=== PATIENT | male | born 1970 | race Caucasian/White ===

== ENCOUNTER 2016-07-29 09:52 | Day surgery (SDC) | payer OTHER ==
[~2016-07-29] VITALS: Ht 175.3 cm; Wt 68.0 kg
[~2016-07-29 09:52] MED LIST: CEFAZOLIN 1GM IVPB FOR OMNI 50 ML IV ONE; EPINEPHRINE 30 MG/30 ML VIAL. ONE
[2016-07-29] MEDS ORDERED: PROPOFOL 20 ML IV ONE (10:11)
[2016-07-29] MEDS ORDERED: DEXAMETHASONE SOD PHOS 20 MG/5 ML VIAL. ONE (10:11)
[2016-07-29] MEDS ORDERED: FAMOTIDINE 20 MG/2 ML VIAL ONE (10:11)
[2016-07-29] MEDS ORDERED: LIDOCAINE 2% 100 MG/5 ML DISP.SYRIN. ONE (10:11)
[2016-07-29] MEDS ORDERED: ONDANSETRON PF 4 MG/2 ML VIAL. ONE (10:11)
[2016-07-29] MEDS ORDERED: MIDAZOLAM HCL/PF 2 MG/2 ML VIAL. ONE (10:44)
[2016-07-29] MEDS ORDERED: ROCURONIUM 50 MG/5 ML VIAL. ONE (10:57)
[2016-07-29] MEDS ORDERED: KETOROLAC 60 MG/2 ML SYRINGE FOR OR. ONE (12:03)
[2016-07-29] MEDS ORDERED: SEVOFLURANE > 120 MINUTES. IH ONE (13:21)
[2016-07-29] MEDS ORDERED: NEOSTIGMINE METHYLSULFATE 5 MG/5 ML SYRINGE. ONE (13:22)
[2016-07-29] MEDS ORDERED: GLYCOPYRROLATE 1 MG/5 ML VIAL. ONE (13:22)
--- NOTE | 2016-07-29 14:24 | DISCH ---
DISCHARGE INSTRUCTIONS Condition on Discharge Condition on Discharge: Stable Activity After Discharge Activity Instructions for Disc: Other, see below Other activity instructions: swing arm at side and fine motor use of hand OK Diet after Discharge Diet after Discharge: Regular Wound Incision Care Wound/Incision Care: Ice to area for comfort, Change dressing Other wound/incision instructi: remove dressing 2 days may then shower Community/Resources/Services Services at Discharge: PT EVALUATE & TREAT Contacting the DR. after DC Call your doctor for: Concerns you may have Follow-Up Follow up with: Selwyn 10 days SHILPA HUNTER MD Jul 29, 2016 14:24
[2016-07-29] MEDS ORDERED: OXYC-244 PO (14:26)
[2016-07-29] MEDS ORDERED: FENTANYL PF 100 MCG/2 ML VIAL. ONE (15:13)
[2016-07-29] MEDS ORDERED: IV RINGERS,LACTATED 1000ML 1,000 ML IV SCH (15:16)
[2016-07-29] MEDS ORDERED: MORPHINE SULFATE 2 MG/ML DISP.SYRIN. IV PRN (15:30)
[2016-07-29] MEDS ORDERED: FENTANYL PF 100 MCG/2 ML VIAL. IV PRN ×2 (15:30)
[2016-07-29] MEDS ORDERED: OXYCODONE/APAP 7.5/325 TABLET. PO ONE (15:30)
[2016-07-29] MEDS ORDERED: MORPHINE SULFATE 4 MG/ML DISP.SYRIN. IV PRN (15:30)
[2016-07-29] MEDS ORDERED: ONDANSETRON PF 4 MG/2 ML VIAL. IV PRN (15:30)
[2016-07-29] MEDS ORDERED: MIDAZOLAM HCL/PF 2 MG/2 ML VIAL. IV ONE (15:30)
[2016-07-29 15:35] VITALS: BP 112/70
--- NOTE | 2016-07-30 06:36 | PDOC ---
BRIEF OPERATIVE NOTE Date: Jul 29, 2016 Pre-Op Diagnosis rotator cuff tear, ac djd Post-Op Diagnosis same Procedure Performed right shoulder arthroscopic rotator cuff repair, decompression, distal clavicle excision Surgeon Selwyn Anesthesia Type: General, Regional Blood Loss 25cc Findings above Complications none SHILPA HUNTER MD Jul 30, 2016 06:36
--- NOTE | 2016-07-30 09:06 | OP ---
DATE OF SURGERY: 07/29/2016 PREOPERATIVE DIAGNOSIS: Right shoulder rotator cuff tear and acromioclavicular and degenerative joint disease. POSTOPERATIVE DIAGNOSIS: Right shoulder rotator cuff tear and acromioclavicular and degenerative joint disease. PROCEDURE: Right shoulder arthroscopy, arthroscopic rotator cuff repair, subacromial decompression, distal clavicle excision. SURGEON: Salo Samano M.D. ANESTHESIA: General endotracheal plus scalene block. ESTIMATED BLOOD LOSS: Minimal. COMPLICATIONS: None. OPERATIVE INDICATIONS: The patient has pain and weakness in his dominant right shoulder. MRI shows a full thickness rotator cuff tear. I had gone over with him the risks, benefits, postoperative course of typical operative treatment and nonoperative treatment options that would be basically compensation for nonhealing. We had talked about the possibility of nerve or blood vessel damage, infection, continued pain, medical or other anesthetic complications among others and long rehabilitation process expected. All his questions were answered. Consent was obtained and he agrees to proceed with operative evaluation and treatment. DESCRIPTION OF PROCEDURE: The patient was identified, procedure verified, patient placed in the supine position on the operating table. After adequate amounts of general endotracheal anesthesia were administered, he was placed in decubitus position, right side up. All bony prominences were well padded and the shoulder was examined under anesthesia and found to have full range of motion, no instability and was prepped and draped in standard sterile fashion, placed in the arthroscopic arm velasco with a total of 10 pounds of traction. After timeout was performed, the patient and procedure identified and verified, a standard posterior portal was established and anterior portal established using spinal needle localization and the shoulder joint was systematically examined. Biceps anchor and the biceps tendon itself were found to be intact. He did have a large appearance of U-shaped tear present from the joint side, this was capsule ligamentous structures as well as the bare area of the humerus were noted to be intact as was the glenohumeral cartilage. The subacromial space was then entered and a significant bursal tissue had to be cleared away to visualize the area, the rotator cuff was mobilized and actually found to have a more irregular but mainly L-shaped appearance, a nxtk-gr-sjrj repair of the tear was affected by placing several sutures with a bird beak suture passer and the L-shaped of the configuration was treated likewise the dyat-ht-ezwt nature was brought together with several more sutures. A total of 4 were placed zhnj-qz-gjuy and gave excellent really essentially anatomic apposition of the tear when they were by sliding, locking knot backed up by alternating post-half hitches. Next, the left final repair laterally after preparation of the rotator cuff footprint with arthroscopic bur was brought down by a Hurtado [employer]hew footprint suture anchor which gave anatomic positioning and of watertight repair and all degrees of internal and external rotation. Anterior acromial spur was then removed with the arthroscopic bur using cutting block technique and a distal clavicle excision was performed to 1 cm of the distal clavicle as in the area was narrowed and arthritic and symptomatic, any bony fragments were removed with the arthroscopic shaver. The repair was again examined under all degrees of internal and external rotation. The joint was drained of arthroscopic fluid. Portals closed with nylon suture. Sterile dressings were applied. The patient was placed in an immobilizer, extubated and transferred to postop holding in stable condition having tolerated the procedure well. SALO SAMANO MD DR: ELISSA/markus JOB#: [id number] / [id number]
== END 2016-07-29 16:30 | disposition home or self-care (01) ==
LOC: SURG 09:52
PROVIDERS: ATTEND Orthopaedic Surgery
DX: M75.101 Unspecified rotator cuff tear or rupture of right shoulder, not specified as traumatic (principal); M25.811 Other specified joint disorders, right shoulder; Z72.89 Other problems related to lifestyle
CPT/HCPCS: 29824; 29826; 29827; J0171; J0690; J1100; J1885; J2250; J2405; J2704; J2710; J3010; J3490; S0028; C1713; J7120

== ENCOUNTER 2016-09-10 00:49 | Inpatient (IN) | payer SELFPAY ==
[~2016-09-10] VITALS: Ht 175.3 cm; Wt 66.2 kg
[2016-09-10] VITALS (25 sets, daily range): BP systolic 118–152; BP diastolic 73–95
[~2016-09-10 00:49] MED LIST changes: -CEFAZOLIN 1GM IVPB FOR OMNI 50 ML IV ONE; -EPINEPHRINE 30 MG/30 ML VIAL. ONE; +OXYC-244 PO
[2016-09-10] MEDS ORDERED: MORPHINE SULFATE 2 MG/ML DISP.SYRIN. IV PRN (03:15)
[2016-09-10] MEDS ORDERED: HEPARIN for IV BOLUS 10,000 UNIT/10 ML VIAL. IV PRN ×2 (03:15→07:30)
[2016-09-10] MEDS ORDERED: PNEUMOCOCCAL VAX SCREEN BY RX. MC ONE (03:45)
[2016-09-10] MEDS: IV NORMAL SALINE 1000ML BAG 1,000 ML IV SCH ×2 (04:20→16:57)
[2016-09-10] MEDS ORDERED: NAPR550T3 PO (05:03)
[2016-09-10] MEDS ORDERED: TRAM50TA PO (05:03)
[2016-09-10] MEDS ORDERED: CYCL5TAB PO (05:03)
[2016-09-10 06:09] LABS: HEMATOCRIT 36.6 % (39.0-53.0); HEMOGLOBIN 12.7 g/dL (13.0-17.5); RED BLOOD COUNT 4.08 x10^6/uL (4.30-5.70); RED CELL DISTRIBUTION WIDTH 14.2 % (11.5-14.5)
[2016-09-10 06:26] LABS: CALCIUM 8.8 mg/dL (8.5-10.1); CREATININE 0.9 mg/dL (0.7-1.3); GFR 91.7; POTASSIUM 5.4 mmol/L (3.5-5.1)
[2016-09-10] MEDS: HEPARIN for IV BOLUS 10,000 UNIT/10 ML VIAL. IV PRN (07:29)
[2016-09-10] MEDS: MORPHINE SULFATE 2 MG/ML DISP.SYRIN. IV PRN ×3 (08:13→14:00)
--- NOTE | 2016-09-10 08:52 | PDOC ---
Provider Note Provider Note dictated acute resp fail abnl ct pe hep gtt, echo, abx, bronchodilator, if cardiology not going to do pericardiocentesis, would recommend ct guided bx of ant med or rll mass whatever is easier to access. ERMIAS ALICIA MD September 10, 2016 08:52
[2016-09-10] MEDS ORDERED: PNEUMOC CONJ VACC 23-VALENT 0.5 ML VIAL. VAX IM ONE (09:00)
[2016-09-10] MEDS: PANTOPRAZOLE 40 MG TABLET.DR. PO SCH (09:08)
--- NOTE | 2016-09-10 10:05 | RAD ---
Examination: Ultrasound bilateral lower extremity venous duplex History: History of pulmonary embolism Comparison: None available Technique: Grayscale, color Doppler 2-D, spectral waveform analysis of the bilateral lower extremity venous system were performed. Findings: There is a echogenicity identified in the distal left impression femoral vein extending into the popliteal vein, posterior tibialis vein likely occlusive thrombus. The right lower extremity venous system is patent. Impression : Occlusive deep venous thrombosis identified in the left distal superficial femoral vein extending into the popliteal vein and the posterior tibialis vein . Report given to information technology account manager to the patient's nurse.
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
--- NOTE | 2016-09-10 10:22 | CONS ---
DATE OF CONSULTATION: 09/10/2016 REASON FOR CONSULTATION: Pericardial effusion. HISTORY OF PRESENT ILLNESS: The patient is a 46-year-old gentleman who presented to the [facility] in the setting of progressive cough. He reported that approximately 6 weeks ago, he underwent a right shoulder surgery and since then has had progressive cough to a point where he had dyspnea as well. He reported hemoptysis in addition to his cough. In this setting, upon arrival to the [facility], he underwent a CAT scan of the chest, which unfortunately revealed possible anterior and right lower lobe masses suggestive of possible neoplasm and he was transferred to [facility] ICU for further evaluation and treatment. Cardiology was asked to comment on his moderate size pericardial effusion noted on CT scan of the chest. In speaking with the patient, he has had dyspnea to the point where he is unable to ambulate. He denies any chest pain, but does have orthopnea. Denies any syncope, but does have left greater than right lower extremity edema. In addition to his pericardial effusion, he also has moderate bilateral pleural effusions and possible subsegmental PEs for which he has been started on heparin drip. PAST MEDICAL HISTORY: No significant past medical history. FAMILY HISTORY: No significant family history. SOCIAL HISTORY: The patient reports smoking tobacco approximately half a pack a day for the last 25 years. He also uses occasional marijuana. He is unemployed and also unfortunately does not have any insurance. ALLERGIES: No known drug allergies. CV MEDS: None REVIEW OF SYSTEMS: Negative for 10 out of 14 systems reviewed, unless otherwise mentioned above in HPI. PHYSICAL EXAMINATION: VITAL SIGNS: Afebrile, heart rate 120, blood pressure 110/82, pulse ox 96% on 4 liters. GENERAL: He appears to be thin and older than stated age. HEAD AND NECK: Unremarkable and there is no lymphadenopathy. HEART: Tachycardic without any murmurs, rubs or gallops. LUNGS: Decreased breath sounds bilaterally. ABDOMEN: Soft, nontender. EXTREMITIES: Left greater than right edema from the hip to the ankle. NEUROLOGIC: No focal deficits. MUSCULOSKELETAL: No trauma. DIAGNOSTIC TESTING: CT scan reveals large pericardial effusion and moderate bilateral pleural effusions with a right lower lobe parenchymal density suggestive of neoplasm. Echocardiogram is pending. ASSESSMENT: 1. Pericardial effusion, likely secondary to malignancy. 2. Respiratory failure secondary to lung mass versus a pulmonary embolus. RECOMMENDATIONS: 1. We will obtain an echocardiogram and determine the need for a pericardiocentesis. He would likely benefit from a symptomatic perspective also from a diagnostic perspective to obtain a pericardiocentesis. We will follow along closely. Poor prognosis. Thank you for this consultation. LISSA HARPER MD DR: ALYX/markus JOB#: [id number] / [id number] ZENA
[2016-09-10] MEDS: IPRATRPIUM/ALBUTEROL 0.5/2.5MG 3 ML NEBU. NEB SCH ×3 (11:39→19:09)
[2016-09-10] MEDS: BUDESONIDE 0.5 MG/2 ML NEBU. NEB SCH ×2 (11:39→19:09)
--- NOTE | 2016-09-10 11:59 | CARD ---
APPROVED REPORT EXAM: Two-dimensional and M-mode echocardiogram with Doppler and color Doppler. Other Information Quality : Excellent INDICATION Pericardial Effusion 2D DIMENSIONS RVDd2.8 (2.9-3.5cm)Left Atrium(2D)2.4 (1.6-4.0cm) IVSd1.2 (0.7-1.1cm)Aortic Root(2D)2.9 (2.0-3.7cm) LVDd4.1 (3.9-5.9cm)LVOT Diameter1.9 (1.8-2.4cm) PWd0.8 (0.7-1.1cm)LVDs2.1 (2.5-4.0cm) FS (%) 30.0 %SV60.8 ml LVEF(%)60.0 (>50%) Aortic Valve AoV Peak Johan.120.1cm/sAoV VTI15.2cm AO Peak GR.5.8mmHgLVOT VTI 13.12cm AO Mean GR.3mmHgAVA (VTI)2.50cm2 Mitral Valve MV E Qfmewjil14.9cm/sMV DECEL CUOX051fj MV A Bzwywrga20.0cm/sE/A Ratio1.1 TDI Lateral E' P. V9.72cm/sMedial E' P. V5.21cm/s E/Lateral E'7.3E/Medial E'13.6 Tricuspid Valve TR P. Qjjobykv809gj/sRAP WMTAMBGA92qeCd TR Peak Gr.82pgUzRQDW16swXx Pulmonary Vein S1 Fshfpqdt44.7cm/sS2 Omxeuast85.60cm/s D2 Mpmzmwgb92.6cm/sPVa ikogvixq732hotv LEFT VENTRICLE The left ventricle is normal size. There is mild asymmetric septal left ventricular hypertrophy. The left ventricular systolic function is normal and the ejection fraction is within normal range. The Ej ection Fraction is 55-60%. There is normal LV segmental wall motion. Transmitral Doppler flow pattern is Grade I-abnormal relaxation pattern. RIGHT VENTRICLE The right ventricle is normal size. The right ventricular systolic function is normal. Suspect mild R V diastolic collapse suggestive of echocardiographic evidence of early tamponade. ATRIA The left atrium size is normal. The right atrium size is normal. The interatrial septum is intact wit h no evidence for an atrial septal defect or patent foramen ovale as noted on 2-D or Doppler imaging. AORTIC VALVE The aortic valve is normal in structure and function. Doppler and Color Flow revealed no significant aortic regurgitation. There is no significant aortic valvular stenosis. MITRAL VALVE The mitral valve is normal in structure and function. There is no evidence of mitral valve prolapse. There is no mitral valve stenosis. Doppler and Color-flow revealed trace mitral regurgitation. TRICUSPID VALVE The tricuspid valve is normal in structure and function. Doppler and Color Flow revealed trace tricus pid regurgitation. There is moderate pulmonary hypertension. The PA pressure was estimated at 45 mmHg . There is no tricuspid valve stenosis. PULMONIC VALVE Doppler and Color Flow revealed no pulmonic valvular regurgitation. There is no pulmonic valvular miriam nosis. GREAT VESSELS The aortic root is normal in size. The ascending aorta is normal in size. The IVC is dilated and obie apses <50% with inspiration. PERICARDIAL EFFUSION There is a moderate to large circumferential pericardial effusion, measuring approximately 1.9 cm in greatest dimension from the subcostal view. Ovearll, appears to be moderate in nature. Mild diastolic collapse of the RV noted. Critical Notification Critical Value: No <Conclusion> The left ventricular systolic function is normal and the ejection fraction is within normal range. Th e Ejection Fraction is 55-60%. There is normal LV segmental wall motion. Suspect mild RV diastolic collapse suggestive of echocardiographic evidence of early tamponade. The IVC is dilated and collapses <50% with inspiration. There is a moderate to large circumferential pericardial effusion, measuring approximately 1.9 cm in greatest dimension from the subcostal view. Ovearll, appears to be moderate in nature. Mild diastolic collapse of the RV noted.
--- NOTE | 2016-09-10 13:34 | HP ---
ADMIT DATE: 09/10/2016 CHIEF COMPLAINT: Shortness of breath. HISTORY OF PRESENT ILLNESS: The patient is a 46-year-old gentleman who presented to the Emergency Room with shortness of breath and worsening cough. He relates that cough has been going on at least since his rotator cuff repair about 6 weeks ago. However, his girlfriend relates that this actually had a predated surgery. Cough, however, has been getting worse, has some sputum production without any discoloration. He denies any chest pain. He does, however, have orthopnea, worsening cough at night as well. On further questioning, he reports subjective fevers and no rigors, has a weight loss of about 15-20 pounds over the past 6 weeks or so. He denies any nausea or vomiting. He does have positive anorexia. In the Emergency Room, chest x-ray showed cardiomegaly and further abnormalities prompting a CT scan of the chest; small pleural effusions were noted as well as pericardial effusion. A large right-sided posterior mass was noted as well. The patient was transferred to the [facility] for further management and care. A second issue that patient brought up, on examination, was swelling in the left lower extremity as well as in the left neck. Neck had been painful, but he had attributed symptoms due to the sling that he was wearing for his right rotator cuff repair. However, on further examination, DVT was found in left lower extremity and he was started on heparin drip. PAST MEDICAL HISTORY: 1. GERD. 2. Esophageal care requiring laser closure in his teenage years. FAMILY HISTORY: Positive for breast cancer in two of his aunts. Maternal grandfather also had some type of cancer, unknown specificity. SOCIAL HISTORY: Lives with his girlfriend, currently works at [employer] in [email or web address]. He smokes less than half a pack a day, starting at age 19. He has quit alcohol completely 2 months ago, but admits that occasionally this had been excessive and smokes pot occasionally. No other drugs. ALLERGIES: No known drug allergies. HOME MEDICATIONS: MAR reconciled with home meds. REVIEW OF SYSTEMS: Positive as per HPI. Rest of organ system review is negative. PHYSICAL EXAMINATION: VITAL SIGNS: From today show a blood pressure of 127/85, heart rate of 108, respiratory rate at 22. He is afebrile, satting 93 on 2 liters of nasal cannula. GENERAL: This is a malnourished appearing 46-year-old gentleman, alert and oriented, in no acute distress. HEENT: Shows no scleral icterus. NECK: Supple. Left supraclavicular area is swelled and indurated. No cords palpable. LUNGS: Clear to auscultation bilaterally. HEART: Slightly tachycardic. No murmur appreciated. ABDOMEN: Has positive bowel sounds, soft, nontender, no organomegaly. EXTREMITIES: Showed trace left lower extremity swelling from feet to knee. SKIN: Warm, soft and dry without any rash. LABORATORY DATA: CBC with a WBC of 10, hemoglobin 12.7, platelets of 266. Chemistries with a BUN and creatinine of 19 and 0.9. Electrolytes with a sodium of 133, potassium 5.4, and calcium at 8.8. IMAGING DATA: CT, x-rays, and ultrasound of the lower extremities as noted above. ASSESSMENT AND PLAN: The patient is a 46-year-old gentleman with a deep vein thrombosis as well as a lung mass. This is highly suspicious for malignancy. I suspect that in the setting of post-orthopedic surgery, his risk for blood clots is elevated to begin with, not improved with malignancy added to the equation. He currently is on heparin drip. We will keep him on this for the time being until all studies and interventions have been completed. 1. Pericardial effusion is osvg-fa-tnxfadwy, could very well be malignant as well. Cardiology is following. 2. Lung mass, most likely a primary lung malignancy. We will need biopsy for this. 3. Deep vein thrombosis, currently on heparin drip. At high risk secondary to malignancy as well as recent ortho surgery. 4. Anemia is mild. Suspect due to chronic inflammation with above. Obtain anemia profile to rule out any deficiencies. 5. Prognosis at this point appears poor. Discussed the likelihood of this being a malignancy with him. He is distraught. He is, however, accepting and agreeable to further workup. MAY CHAVARRIA MD DR: RIZWAN/markus JOB#: [id number] / [id number] ZENA
[2016-09-10] MEDS ORDERED: TEMAZEPAM 7.5 MG CAPSULE PO PRN (14:15)
[2016-09-10] MEDS: MORPHINE SULFATE 4 MG/ML DISP.SYRIN. IV PRN ×2 (19:50→22:08)
[2016-09-10] MEDS: HEPARIN 25,000UTS/500ML PREMIX 500 ML IV PRN (22:45)
--- NOTE | 2016-09-10 23:17 | RAD ---
PROCEDURE Chest CT without contrast HISTORY Left shoulder pain. Subcutaneous air. History of pulmonary embolism. TECHNIQUE Noncontrast helical CT scanning of the chest was performed. Without contrast, the sensitivity to detect organ pathology is decreased. One or more of the following individualized dose reduction techniques were utilized for this study: 1. Automated exposure control 2. Adjustment of the mA and/or kV according to patient size 3. Use of iterative reconstruction technique COMPARISON None available. FINDINGS Moderate size bilateral pleural effusions are seen. No pneumothorax is seen. No pneumomediastinum is evident. No subcutaneous air is evident. Proximal bronchial tree is patent. Bilateral peribronchial thickening is seen consistent with bronchitis. Perihilar ground-glass lung infiltrates are seen which could represent pulmonary edema. However, denser consolidation is seen within the medial aspect of the right lower lobe and this displaces the bronchus anteriorly. Therefore, this may represent a lung mass rather than a pneumonia. This measures 8.6 centimeters in greatest dimension. No bulky thoracic lymphadenopathy is seen. There is some residual thymic tissue within the anterior mediastinum. Heart size is normal. However a small to moderate pericardial effusion is present. No focal aneurysmal dilatation of the thoracic aorta is seen. Radiolucent lesions of the thoracic and lumbar spine are seen consistent with metastatic disease. No adrenal mass is seen. IMPRESSION 8.6 centimeter right lower lobe lung mass. Moderate size bilateral pleural effusions. Bilateral perihilar ground-glass lung infiltrates consistent with pulmonary edema. Small to moderate sized pericardial effusion. Bilateral peribronchial thickening. This could be secondary to interstitial pulmonary edema or bronchitis. Lymphangitis carcinomatosis has not been excluded. Osseous metastatic disease. Electronically signed by: Anthony De Guzman MD (September 10, 2016 23:15:40)
[2016-09-11] VITALS (23 sets, daily range): BP systolic 106–153; BP diastolic 71–95
[2016-09-11] MEDS: MORPHINE SULFATE 4 MG/ML DISP.SYRIN. IV PRN ×6 (00:10→21:41)
[2016-09-11] MEDS: IV NORMAL SALINE 1000ML BAG 1,000 ML IV SCH ×2 (06:09→20:17)
[2016-09-11] MEDS: BUDESONIDE 0.5 MG/2 ML NEBU. NEB SCH ×2 (06:27→20:53)
[2016-09-11] MEDS: IPRATRPIUM/ALBUTEROL 0.5/2.5MG 3 ML NEBU. NEB SCH ×4 (06:27→20:53)
--- NOTE | 2016-09-11 08:06 | PDOC ---
CARDIOLOGY PROGRESS NOTE SUBJECTIVE: No acute events overnight. Received anxiolytics for sleep. OBJECTIVE: Vital SIgns: Vital Signs Date Time Temp Pulse Resp B/P (MAP) Pulse Ox O2 Delivery O2 Flow Rate FiO2 09/11/16 06:27 100 Nasal Cannula 2.0 09/11/16 06:00 117 18 153/92 (112) 09/11/16 04:00 97.8 97.8 I & O Intake and Output 09/11/16 07:00 Intake Total 3302 ml Output Total 1350 ml Balance 1952 ml Intake Oral 1000 ml IV Total 2302 ml Output Urine Total 1350 ml Objective: Sedated a/o x 3. NAD CVS: tachycardia pulm decreased breath sounds bilaterally abd soft, NT/ND no edema CURRENT MEDICATIONS: Current Medications Medications (Trade) Dose Ordered Sig/Jackie Start Time Stop Time Status Last Admin Dose Admin Albuterol/ Ipratropium (Duoneb) 3 ml RTQID 09/10/16 09:30 09/11/16 06:27 3 ML Budesonide (Pulmicort) 0.5 mg RTBID 09/10/16 09:30 09/11/16 06:27 0.5 MG Ceftriaxone Sodium 1 gm/ Sodium Chloride 50 ml @ 100 mls/hr Q24H 09/10/16 10:00 09/10/16 09:09 100 MLS/HR Heparin Sodium (Porcine) (Heparin Sodium) 1,950 unit PRN Q6HRS PRN 09/10/16 07:30 UNV Heparin Sodium/ Dextrose 500 ml @ 0 mls/hr CONT PRN 09/10/16 03:15 09/10/16 22:45 24.3 MLS/HR Morphine Sulfate 4 mg PRN Q2HR PRN 09/10/16 08:15 09/11/16 06:09 4 MG Pantoprazole Sodium (Protonix) 40 mg DAILYAC 09/10/16 09:30 09/10/16 09:08 40 MG Pneumococcal Polyvalent Vaccine (Do NOT chart on this placeholder) 1 each 1X ONCE 09/10/16 03:45 09/10/16 03:46 UNV Pneumococcal Polyvalent Vaccine (Pneumovax 23) 0.5 ml ONCE ONCE 09/10/16 09:00 09/10/16 09:01 DC 09/10/16 09:11 0.5 ML Sodium Chloride 1,000 ml @ 75 mls/hr [id number] 09/10/16 03:15 09/11/16 06:09 75 MLS/HR Temazepam (Restoril) 7.5 mg PRN QHS PRN 09/10/16 14:15 09/11/16 00:10 7.5 MG DIAGNOSTIC TESTING: CXR pending ASSESSMENT: 1. Respiratory failure secondary to malignancy 2. Incidental pericardial effusion, without significant clinical evidence of tamponade. Problems: PLAN: 1. Will plan for pericardiocentesis tomorrow am. and will try to coordinate lung biopsy with IR to limit time off anticoagulation 2. May need IVC filter, will defer to pulmonary and IR. LISSA HARPER MD September 11, 2016 08:06
[2016-09-11 08:33] LABS: HEMATOCRIT 36.5 % (39.0-53.0); HEMOGLOBIN 12.1 g/dL (13.0-17.5); RED BLOOD COUNT 3.95 x10^6/uL (4.30-5.70); RED CELL DISTRIBUTION WIDTH 14.1 % (11.5-14.5); WHITE BLOOD COUNT 14.6 x10^3/uL (4.0-11.0)
[2016-09-11 08:47] LABS: CALCIUM 9.1 mg/dL (8.5-10.1); CREATININE 0.8 mg/dL (0.7-1.3); POTASSIUM 4.2 mmol/L (3.5-5.1)
[2016-09-11] MEDS: PANTOPRAZOLE 40 MG TABLET.DR. PO SCH (08:47)
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
--- NOTE | 2016-09-11 11:32 | PDOC ---
PROGRESS NOTES Chief Complaint Chief Complaint DVT SOB ASSESSMENT AND PLAN: 1. Lung CA: until proven otherwise. needs bx 2. Pericardial effusion: possibly malignant. symptomatic. cardiology following, tap planned for AM 3. LE DVT L: on heparin gtt; switch to coumadin when procedures completed 4. Anemia: mild, suspected due to chronic inflammation. awaiting anemia labs 5. Rotator cuff repair R 6 weeks ago, but contralat side more painful with cervical base LAD pressing on brachial plexus. adjust pain regimen as needed Vitals Vitals Vital Signs Date Time Temp Pulse Resp B/P (MAP) Pulse Ox O2 Delivery O2 Flow Rate FiO2 09/11/16 10:50 95 Nasal Cannula 4.0 09/11/16 09:00 120 19 131/86 (101) 09/11/16 08:00 98.2 98.2 Physical Exam General: Alert, Oriented X3, Cooperative, No acute distress Heart: Other (tachy) Lungs: Clear (anterioly) Abdomen: Normal bowel sounds, Soft Extremities: No clubbing, No edema Skin: No rashes Labs LABS Laboratory Tests Test 09/10/16 13:35 09/10/16 20:00 09/11/16 07:00 09/11/16 08:10 Heparin Anti-Xa Act, Unfractionated 0.42 IU/mL (0.30-0.70) 0.31 IU/mL (0.30-0.70) Sodium Level 133 mmol/L (136-145) Potassium Level 4.2 mmol/L (3.5-5.1) Chloride Level 98 mmol/L (98-107) Carbon Dioxide Level 27 mmol/L (21-32) Anion Gap 8 (6-14) Blood Urea Nitrogen 17 mg/dL (8-26) Creatinine 0.8 mg/dL (0.7-1.3) Estimated GFR (Cockcroft-Gault) 105.0 Glucose Level 101 mg/dL (70-99) Calcium Level 9.1 mg/dL (8.5-10.1) White Blood Count 14.6 x10^3/uL (4.0-11.0) Red Blood Count 3.95 x10^6/uL (4.30-5.70) Hemoglobin 12.1 g/dL (13.0-17.5) Hematocrit 36.5 % (39.0-53.0) Mean Corpuscular Volume 93 fL (79-100) Mean Corpuscular Hemoglobin 31 pg (25-35) Mean Corpuscular Hemoglobin Concent 33 g/dL (31-37) Red Cell Distribution Width 14.1 % (11.5-14.5) Platelet Count 282 x10^3/uL (140-400) Comment Review of Relevant I have reviewed the following items lady (where applicable) has been applied. Labs Laboratory Tests Test 09/10/16 03:04 09/10/16 06:00 09/10/16 13:35 09/10/16 20:00 Nasal Screen MRSA (PCR) Negative (Negative) White Blood Count 10.0 x10^3/uL (4.0-11.0) Red Blood Count 4.08 x10^6/uL (4.30-5.70) Hemoglobin 12.7 g/dL (13.0-17.5) Hematocrit 36.6 % (39.0-53.0) Mean Corpuscular Volume 90 fL (79-100) Mean Corpuscular Hemoglobin 31 pg (25-35) Mean Corpuscular Hemoglobin Concent 35 g/dL (31-37) Red Cell Distribution Width 14.2 % (11.5-14.5) Platelet Count 266 x10^3/uL (140-400) Heparin Anti-Xa Act, Unfractionated 0.14 IU/mL (0.30-0.70) 0.42 IU/mL (0.30-0.70) 0.31 IU/mL (0.30-0.70) Sodium Level 133 mmol/L (136-145) Potassium Level 5.4 mmol/L (3.5-5.1) Chloride Level 100 mmol/L (98-107) Carbon Dioxide Level 24 mmol/L (21-32) Anion Gap 9 (6-14) Blood Urea Nitrogen 19 mg/dL (8-26) Creatinine 0.9 mg/dL (0.7-1.3) Estimated GFR (Cockcroft-Gault) 91.7 Glucose Level 152 mg/dL (70-99) Calcium Level 8.8 mg/dL (8.5-10.1) Test 09/11/16 07:00 09/11/16 08:10 Sodium Level 133 mmol/L (136-145) Potassium Level 4.2 mmol/L (3.5-5.1) Chloride Level 98 mmol/L (98-107) Carbon Dioxide Level 27 mmol/L (21-32) Anion Gap 8 (6-14) Blood Urea Nitrogen 17 mg/dL (8-26) Creatinine 0.8 mg/dL (0.7-1.3) Estimated GFR (Cockcroft-Gault) 105.0 Glucose Level 101 mg/dL (70-99) Calcium Level 9.1 mg/dL (8.5-10.1) White Blood Count 14.6 x10^3/uL (4.0-11.0) Red Blood Count 3.95 x10^6/uL (4.30-5.70) Hemoglobin 12.1 g/dL (13.0-17.5) Hematocrit 36.5 % (39.0-53.0) Mean Corpuscular Volume 93 fL (79-100) Mean Corpuscular Hemoglobin 31 pg (25-35) Mean Corpuscular Hemoglobin Concent 33 g/dL (31-37) Red Cell Distribution Width 14.1 % (11.5-14.5) Platelet Count 282 x10^3/uL (140-400) Laboratory Tests Test 09/10/16 13:35 09/10/16 20:00 09/11/16 07:00 09/11/16 08:10 Heparin Anti-Xa Act, Unfractionated 0.42 IU/mL (0.30-0.70) 0.31 IU/mL (0.30-0.70) Sodium Level 133 mmol/L (136-145) Potassium Level 4.2 mmol/L (3.5-5.1) Chloride Level 98 mmol/L (98-107) Carbon Dioxide Level 27 mmol/L (21-32) Anion Gap 8 (6-14) Blood Urea Nitrogen 17 mg/dL (8-26) Creatinine 0.8 mg/dL (0.7-1.3) Estimated GFR (Cockcroft-Gault) 105.0 Glucose Level 101 mg/dL (70-99) Calcium Level 9.1 mg/dL (8.5-10.1) White Blood Count 14.6 x10^3/uL (4.0-11.0) Red Blood Count 3.95 x10^6/uL (4.30-5.70) Hemoglobin 12.1 g/dL (13.0-17.5) Hematocrit 36.5 % (39.0-53.0) Mean Corpuscular Volume 93 fL (79-100) Mean Corpuscular Hemoglobin 31 pg (25-35) Mean Corpuscular Hemoglobin Concent 33 g/dL (31-37) Red Cell Distribution Width 14.1 % (11.5-14.5) Platelet Count 282 x10^3/uL (140-400) Medications Current Medications Heparin Sodium/ Dextrose 500 ml @ 0 mls/hr CONT PRN IV SEE I/O RECORD Last administered on 09/10/16 22:45; Start 09/10/16 at 03:15 Heparin Sodium (Porcine) (Heparin Sodium) 1,950 unit PRN Q6HRS PRN IV FOR UFH LEVEL LESS THAN 0.2 Last administered on 09/10/16 07:29; Start 09/10/16 at 03: 15 Heparin Sodium (Porcine) (Heparin Sodium) 1,000 unit PRN Q6HRS PRN IV FOR UFH LEVEL 0.2 - 0.29; Start 09/10/16 at 03:15 Sodium Chloride 1,000 ml @ 75 mls/hr [id number] IV Last administered on 06:09; Start 09/10/16 at 03:15 Morphine Sulfate 2 mg PRN Q2HR PRN IV SEVERE PAIN Last administered on 04:22; Start 09/10/16 at 03:15; Stop 09/10/16 at 08:08; Status DC Pneumococcal Polyvalent Vaccine (Do NOT chart on this placeholder) 1 each 1X ONCE MC ; Start 09/10/16 at 03:45; Stop 09/10/16 at 03:46; Status UNV Pneumococcal Polyvalent Vaccine (Pneumovax 23) 0.5 ml ONCE ONCE VAX IM Last administered on 09/10/16 09:11; Start 09/10/16 at 09:00; Stop 09/10/16 at 09:01 ; Status DC Heparin Sodium (Porcine) (Heparin Sodium) 1,950 unit PRN Q6HRS PRN IV FOR UFH LEVEL LESS THAN 0.2; Start 09/10/16 at 07:30; Status UNV Morphine Sulfate 2 mg PRN Q2HR PRN IV MODERATE PAIN Last administered on 14:00; Start 09/10/16 at 08:15 Morphine Sulfate 4 mg PRN Q2HR PRN IV SEVERE PAIN Last administered on 09:55; Start 09/10/16 at 08:15 Pantoprazole Sodium (Protonix) 40 mg DAILYAC PO Last administered on 09/11/16 08:47; Start 09/10/16 at 09:30 Albuterol/ Ipratropium (Duoneb) 3 ml RTQID NEB Last administered on 09/11/16 10:49; Start 09/10/16 at 09:30 Budesonide (Pulmicort) 0.5 mg RTBID NEB Last administered on 09/11/16 06:27; Start 09/10/16 at 09:30 Ceftriaxone Sodium 1 gm/ Sodium Chloride 50 ml @ 100 mls/hr Q24H IV Last administered on 09/11/16 09:55; Start 09/10/16 at 10:00 Temazepam (Restoril) 7.5 mg PRN QHS PRN PO INSOMNIA Last administered on 00:10; Start 09/10/16 at 14:15 Active Scripts Active Percocet 7.5-325 Mg Tablet (Oxycodone/Acetaminophen) 1 Each Tablet 1 Tab PO PRN Q6HRS PRN Reported Cyclobenzaprine Hcl 5 Mg Tablet 1 Tab PO QHS Tramadol Hcl 50 Mg Tablet 1 Tab PO BID Naproxen Sodium 550 Mg Tablet 1 Tab PO BID Vitals/I & O Vital Sign - Last 24 Hours 09/10/16 09/10/16 09/10/16 09/10/16 11:39 12:00 12:00 13:00 Temp 98.1 98.1 Pulse 106 108 Resp 22 20 B/P (MAP) 139/87 (104) 146/82 (103) Pulse Ox 96 92 93 O2 Delivery Nasal Cannula Nasal Cannula Nasal Cannula O2 Flow Rate 3.0 2.0 2.0 2.0 09/10/16 09/10/16 09/10/16 09/10/16 14:00 14:00 14:30 15:00 Pulse 112 106 Resp 21 24 B/P (MAP) 120/76 (91) 152/90 (110) Pulse Ox 93 94 O2 Delivery Nasal Cannula Nasal Cannula Nasal Cannula Nasal Cannula O2 Flow Rate 2.0 2.0 2.0 2.0 09/10/16 09/10/16 09/10/16 09/10/16 16:00 16:00 16:11 17:00 Temp 97.4 97.4 Pulse 108 112 Resp 23 B/P (MAP) 136/94 (108) 134/77 (96) Pulse Ox 96 97 97 O2 Delivery Nasal Cannula Nasal Cannula Nasal Cannula Nasal Cannula O2 Flow Rate 2.0 2.0 2.0 2.0 09/10/16 09/10/16 09/10/16 09/10/16 18:00 19:00 19:10 19:50 Pulse 112 114 Resp B/P (MAP) 143/73 (96) 120/82 (95) Pulse Ox 95 98 98 O2 Delivery Nasal Cannula Nasal Cannula Nasal Cannula Nasal Cannula O2 Flow Rate 2.0 2.0 2.0 09/10/16 09/10/16 09/10/16 09/10/16 20:00 20:00 20:20 21:00 Temp 97.6 97.6 Pulse 107 102 Resp 20 B/P (MAP) 131/93 (106) 130/87 (101) Pulse Ox 97 98 O2 Delivery Nasal Cannula Nasal Cannula Room Air Nasal Cannula O2 Flow Rate 2.0 2.0 2.0 09/10/16 09/10/16 09/10/16 09/11/16 22:00 22:08 23:00 00:00 Pulse 111 110 Resp B/P (MAP) 147/95 (112) 128/95 (106) Pulse Ox 98 98 O2 Delivery Nasal Cannula Nasal Cannula Nasal Cannula Nasal Cannula O2 Flow Rate 3.0 3.0 2.0 09/11/16 09/11/16 09/11/16 09/11/16 00:00 01:00 02:00 03:00 Temp 97.9 97.9 Pulse 104 112 104 102 Resp 20 22 B/P (MAP) 111/87 (95) 127/75 (92) 129/86 (100) Pulse Ox 97 98 98 98 O2 Delivery Nasal Cannula Nasal Cannula Nasal Cannula Nasal Cannula O2 Flow Rate 3.0 3.0 3.0 3.0 09/11/16 09/11/16 09/11/16 09/11/16 04:00 04:00 05:00 06:00 Temp 97.8 97.8 Pulse 102 102 117 Resp 20 18 18 B/P (MAP) 126/85 (99) 126/83 (97) 153/92 (112) Pulse Ox 97 98 98 O2 Delivery Nasal Cannula Nasal Cannula Nasal Cannula Nasal Cannula O2 Flow Rate 4.0 2.0 4.0 4.0 09/11/16 09/11/16 09/11/16 09/11/16 06:27 07:00 08:00 08:00 Temp 98.2 98.2 Pulse 114 106 Resp 23 22 B/P (MAP) 138/87 (104) 136/82 (100) Pulse Ox 100 90 93 O2 Delivery Nasal Cannula Nasal Cannula Nasal Cannula Nasal Cannula O2 Flow Rate 2.0 4.0 4.0 4.0 09/11/16 09/11/16 09/11/16 09:00 09:55 10:50 Pulse 120 Resp 19 B/P (MAP) 131/86 (101) Pulse Ox 95 95 O2 Delivery Nasal Cannula Nasal Cannula Nasal Cannula O2 Flow Rate 4.0 4.0 4.0 Intake and Output 09/10/16 09/10/16 09/11/16 15:00 23:00 07:00 Intake Total 410 ml 1640 ml 1252 ml Output Total 350 ml 350 ml 650 ml Balance 60 ml 1290 ml 602 ml MAY CHAVARRIA MD September 11, 2016 11:32
[2016-09-11] MEDS: HEPARIN for IV BOLUS 10,000 UNIT/10 ML VIAL. IV PRN (14:47)
[2016-09-11] MEDS ORDERED: oxyCODONE IR 5 MG TABLET PO PRN (15:00)
[2016-09-11] MEDS: oxyCODONE IR 5 MG TABLET PO PRN ×2 (15:02→19:35)
[2016-09-11] MEDS ORDERED: ALBUTEROL SULFATE 2.5 MG/3 ML NEBU. NEB PRN (16:15)
[2016-09-11] MEDS: HEPARIN 25,000UTS/500ML PREMIX 500 ML IV PRN (21:20)
[2016-09-12] VITALS (15 sets, daily range): BP systolic 111–148; BP diastolic 77–99
[2016-09-12] MEDS: oxyCODONE IR 5 MG TABLET PO PRN (00:11)
[2016-09-12] MEDS: MORPHINE SULFATE 4 MG/ML DISP.SYRIN. IV PRN ×5 (01:29→12:25)
[2016-09-12] MEDS: IPRATRPIUM/ALBUTEROL 0.5/2.5MG 3 ML NEBU. NEB SCH ×3 (04:46→12:22)
[2016-09-12] MEDS: PANTOPRAZOLE 40 MG TABLET.DR. PO SCH (07:30)
[2016-09-12] MEDS: BUDESONIDE 0.5 MG/2 ML NEBU. NEB SCH (08:53)
[2016-09-12] MEDS: IV NORMAL SALINE 1000ML BAG 1,000 ML IV SCH (09:31)
[2016-09-12] MEDS ORDERED: LIDOCAINE 2% 20 ML VIAL. ONE (10:27)
[2016-09-12] MEDS ORDERED: HEPARIN for ARTERIAL LINE 0 ML ONE (10:27)
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
--- NOTE | 2016-09-12 11:21 | PDOC ---
PROGRESS NOTES Chief Complaint Chief Complaint DVT SOB ASSESSMENT AND PLAN: 1. Lung CA: until proven otherwise. needs bx, but may be preempted by pericardial window placement 2. Pericardial effusion: possibly malignant. symptomatic. pericardial window planned for today by CT surg. D/w Dr Ardon. 3. LE DVT L: on heparin gtt; switch to coumadin when procedures completed 4. Anemia: mild, suspected due to chronic inflammation. awaiting anemia labs 5. Rotator cuff repair R 6 weeks ago, but contralat side more painful with cervical base LAD pressing on brachial plexus. adjust pain regimen as needed 6, Adjustment D/O: becoming more depressed. start SSRI History of Present Illness History of Present Illness breathing more labored today, pain in L shoulder. depressed Vitals Vitals Vital Signs Date Time Temp Pulse Resp B/P (MAP) Pulse Ox O2 Delivery O2 Flow Rate FiO2 09/12/16 08:54 89 Nasal Cannula 4.0 09/12/16 07:16 32 09/12/16 06:00 115 130/80 (97) 09/12/16 04:00 97.8 97.8 Physical Exam General: Alert, Oriented X3, Cooperative, No acute distress Heart: Other (tachy) Lungs: Other (decrease bs) Abdomen: Normal bowel sounds, Soft Extremities: No clubbing, No edema Skin: No rashes Labs LABS Laboratory Tests Test 09/11/16 13:50 09/11/16 20:45 09/12/16 02:30 Heparin Anti-Xa Act, Unfractionated 0.17 IU/mL (0.30-0.70) 0.32 IU/mL (0.30-0.70) 0.26 IU/mL (0.30-0.70) Nutrition Consultation Dietary Evaluation: Recommendations by RD: Increase Calorie Intake, Protein supplementation Comments: Add boost plus TID (360 calories / 14 grams protein) Add the soft diet/gravy at all meals Add Dash at all meals Encouraged consumption of nutrient dense foods first Expected Outcomes/Goals: meet 75% estimated nutrition needs no further wt loss Interpretation of weight loss: >5% in 1 month Malnutrition Findings: Food and Nutrition Intake (Mod: <75% est energy req 7days Malnutrition related to morbid: No Weight Status: Appropriate MAY CHAVARRIA MD September 12, 2016 11:21
[2016-09-12] MEDS ORDERED: LIDOCAINE 2% PF Vial for OR 5 ML VIAL. ONE (13:12)
[2016-09-12] MEDS ORDERED: ETOMIDATE 20 MG/10 ML VIAL. IV ONE (13:12)
[2016-09-12] MEDS ORDERED: ROCURONIUM 100 MG/10 ML VIAL. ONE (13:13)
[2016-09-12] MEDS ORDERED: FAMOTIDINE 20 MG/2 ML VIAL ONE (13:13)
[2016-09-12] MEDS ORDERED: ONDANSETRON PF 4 MG/2 ML VIAL. ONE (13:13)
[2016-09-12] MEDS ORDERED: fentaNYL PF VIAL 250 MCG/5 ML VIAL ONE (13:22)
[2016-09-12] MEDS ORDERED: SURGICEL HEMOSTAT 4X8 EACH. ONE (13:48)
[2016-09-12] MEDS ORDERED: LIDOCAINE 1% 20 ML VIAL. ONE (13:48)
[2016-09-12] MEDS ORDERED: BUPIVACAINE MPF 0.5% 30 ML VIAL. ONE (13:48)
--- NOTE | 2016-09-12 14:13 | PDOC2 ---
CONSULT Date of Consult Date of Consult DATE: 09/12/16 TIME: 14:06 Reason for Consult Reason for Consult: Pericardial effusion Referring Physician Referring Physician: Dr Martino Identification/Chief Complaint Chief Complaint Shortness of breath Source Source: Chart review, Patient History of Present Illness Reason for Visit: The patient is a 46-year-old male who presents with increasing shortness of breath and productive cough for the past 3 weeks. His been associated with fatigue, anorexia and weight loss. CT scan of the chest demonstrated a large right lower lobe hilar mass, bilateral pleural effusions and a pericardial effusion. He subsequently had a transthoracic echo which showed a decent size pericardial effusion with some RV compression consistent with early tamponade. The patient today continues to be short of breath and looks uncomfortable. I was consulted to consider the patient for a pericardial window. Family History Family History: Cancer Social History 1 pack per day ALCOHOL: social Drugs: None Lives: with Family Current Medications Current Medications Current Medications Heparin Sodium/ Dextrose 500 ml @ 0 mls/hr CONT PRN IV SEE I/O RECORD Last administered on 09/11/16 21:20; Start 09/10/16 at 03:15 Heparin Sodium (Porcine) (Heparin Sodium) 1,950 unit PRN Q6HRS PRN IV FOR UFH LEVEL LESS THAN 0.2 Last administered on 09/11/16 14:47; Start 09/10/16 at 03: 15 Heparin Sodium (Porcine) (Heparin Sodium) 1,000 unit PRN Q6HRS PRN IV FOR UFH LEVEL 0.2 - 0.29; Start 09/10/16 at 03:15 Sodium Chloride 1,000 ml @ 75 mls/hr [id number] IV Last administered on 09:31; Start 09/10/16 at 03:15 Morphine Sulfate 2 mg PRN Q2HR PRN IV SEVERE PAIN Last administered on 04:22; Start 09/10/16 at 03:15; Stop 09/10/16 at 08:08; Status DC Pneumococcal Polyvalent Vaccine (Do NOT chart on this placeholder) 1 each 1X ONCE MC ; Start 09/10/16 at 03:45; Stop 09/10/16 at 03:46; Status UNV Pneumococcal Polyvalent Vaccine (Pneumovax 23) 0.5 ml ONCE ONCE VAX IM Last administered on 09/10/16 09:11; Start 09/10/16 at 09:00; Stop 09/10/16 at 09:01 ; Status DC Heparin Sodium (Porcine) (Heparin Sodium) 1,950 unit PRN Q6HRS PRN IV FOR UFH LEVEL LESS THAN 0.2; Start 09/10/16 at 07:30; Status UNV Morphine Sulfate 2 mg PRN Q2HR PRN IV MODERATE PAIN Last administered on 14:00; Start 09/10/16 at 08:15 Morphine Sulfate 4 mg PRN Q2HR PRN IV SEVERE PAIN Last administered on 12:25; Start 09/10/16 at 08:15 Pantoprazole Sodium (Protonix) 40 mg DAILYAC PO Last administered on 09/11/16 08:47; Start 09/10/16 at 09:30 Albuterol/ Ipratropium (Duoneb) 3 ml RTQID NEB Last administered on 09/12/16 12:22; Start 09/10/16 at 09:30 Budesonide (Pulmicort) 0.5 mg RTBID NEB Last administered on 09/12/16 08:53; Start 09/10/16 at 09:30 Ceftriaxone Sodium 1 gm/ Sodium Chloride 50 ml @ 100 mls/hr Q24H IV Last administered on 09/12/16 10:43; Start 09/10/16 at 10:00 Temazepam (Restoril) 7.5 mg PRN QHS PRN PO INSOMNIA Last administered on 00:10; Start 09/10/16 at 14:15 Oxycodone HCl (Roxicodone) 5 mg PRN Q4HRS PRN PO MILD-MOD PAIN; Start 09/11/16 at 15:00 Oxycodone HCl (Roxicodone) 10 mg PRN Q4HRS PRN PO SEVERE PAIN Last administered on 09/12/16 00:11; Start 09/11/16 at 15:00 Albuterol Sulfate (Ventolin Neb Soln) 2.5 mg PRN Q4HRS PRN NEB SHORTNESS OF BREATH Last administered on 09/11/16 16:34; Start 09/11/16 at 16:15 Lidocaine HCl 20 ml TELiBrahma-Epicsell ONCE .ROUTE ; Start 09/12/16 at 10:27; Stop at 10:28; Status DC Heparin Sodium/ Sodium Chloride 0 ml @ As Directed STK-MED ONCE .ROUTE ; Start 09/12/16 at 10:27; Stop 09/12/16 at 10:28; Status DC Sertraline HCl (Zoloft) 25 mg QHS PO ; Start 09/12/16 at 21:00 Etomidate (Amidate) 20 mg STK-MED ONCE IV ; Start 09/12/16 at 13:12; Stop at 13:13; Status DC Lidocaine HCl (Lidocaine Pf 2% Vial) 5 ml STK-MED ONCE .ROUTE ; Start 09/12/16 at 13:12; Stop 09/12/16 at 13:13; Status DC Famotidine (Pepcid) 20 mg STK-MED ONCE .ROUTE ; Start 09/12/16 at 13:13; Stop at 13:14; Status DC Ondansetron HCl (Zofran) 4 mg STK-MED ONCE .ROUTE ; Start 09/12/16 at 13:13; Stop 09/12/16 at 13:14; Status DC Rocuronium [place] (Zemuron) 100 mg STK-MED ONCE .ROUTE ; Start 09/12/16 at 13: 13; Stop 09/12/16 at 13:14; Status DC Fentanyl Citrate (Fentanyl 5ml Vial) 250 mcg STK-MED ONCE .ROUTE ; Start at 13:22; Stop 09/12/16 at 13:23; Status DC Cellulose 1 each STK-MED ONCE .ROUTE ; Start 09/12/16 at 13:48; Stop 09/12/16 at 13:49; Status DC Bupivacaine HCl (Sensorcaine Mpf 0.5%) 30 ml STK-MED ONCE .ROUTE ; Start at 13:48; Stop 09/12/16 at 13:49; Status DC Lidocaine HCl 20 ml STK-MED ONCE .ROUTE ; Start 09/12/16 at 13:48; Stop at 13:49; Status DC Active Scripts Active Percocet 7.5-325 Mg Tablet (Oxycodone/Acetaminophen) 1 Each Tablet 1 Tab PO PRN Q6HRS PRN Reported Cyclobenzaprine Hcl 5 Mg Tablet 1 Tab PO QHS Tramadol Hcl 50 Mg Tablet 1 Tab PO BID Naproxen Sodium 550 Mg Tablet 1 Tab PO BID Allergies Allergies: Coded Allergies: No Known Drug Allergies (Unverified , 07/29/16) ROS General: YES: Fatigue PSYCHOLOGICAL ROS: No: Anxiety, Behavioral Disorder, Concentration difficultie , Decreased libido, Depression, Disorientation, Hallucinations, Hostility, Irritablity, Memory difficulties, Mood Swings, Obsessive thoughts, Physical abuse, Sexual abuse, Sleep disturbances, Suicidal ideation Eyes: No Blurry vision, No Decreased vision, No Double vision, No Dry eyes, No Excessive tearing, No Eye Pain, No Itchy Eyes, No Loss of vision, No Photophobia , No Scotomata, No Uses contacts, No Uses glasses HEENT: No: Heacaches, Visual Changes, Hearing change, Nasal congestion, Nasal discharge, Oral lesions, Sinus pain, Sore Throat, Epistaxis, Sneezing, Snoring, Tinnitus, Vertigo, Vocal changes ALLERGY AND IMMUNOLOGY: No: Hives, Insect Bite Sensitivity, Itchy/Watery Eyes, Nasal Congestion, Post Nasal Drip, Seasonal Allergies Hematological and Lymphatic: YES: Swollen Lymph Nodes ENDOCRINE: No: Breast Changes, Galactorrhea, Hair Pattern Changes, Hot Flashes , Malaise/lethargy, Mood Swings, Palpitations, Polydipsia/polyuria, Skin Changes , Temperature Intolerance, Unexpected Weight Changes Respiratory: YES: Cough, Pleuritic Pain, Shortness of breath, Sputum Changes, Tachypnea, Wheezing Cardiovascular: No Chest Pain, No Palpitations, No Orthopnea, No Paroxysmal Noc. Dyspnea, No Edema, No Lt Headedness Gastrointestinal: No Nausea, No Vomiting, No Abdominal Pain, No Diarrhea, No Constipation, No Melena, No Hematochezia Genitourinary: No Dysuria, No Frequency, No Incontinence, No Hematuria, No Retention, No Discharge, No Urgency, No Pain, No Flank Pain Musculoskeletal: No Gait Disturbance, No Joint Pain, No Joint Stiffness, No Joint Swelling, No Muscle Pain, No Muscular Weakness, No Pain In:, No Swelling In: Neurological: No Behavorial Changes, No Bowel/Bladder ControlChng, No Confusion , No Dizziness, No Gait Disturbance, No Headaches, No Impaired Coord/balance, No Memory Loss, No Numbness/Tingling, No Seizures, No Speech Problems, No Tremors, No Visual Changes, No Weakness Skin: No Dry Skin, No Eczema, No Hair Changes, No Lumps, No Mole Changes, No Mottling, No Nail Changes, No Pruritus, No Rash, No Skin Lesion Changes, No Acne Physical Exam General: Alert, Oriented X3, moderate distress HEENT: Other (extensive cervical lymphadenopathy) Lungs: Other (reduced air entry at the bases) Heart: Regular rate, Normal S1, Normal S2 Abdomen: Soft, No tenderness Extremities: No edema, Normal pulses Skin: No significant lesion Neuro: Normal gait, Normal speech, Strength at 5/5 X4 ext, Normal tone, Sensation intact, Cranial nerves 3-12 NL Psych/Mental Status: Mental status NL MUSCULOSKELETAL: No joint tenderness Vitals VITALS Vital Signs Date Time Temp Pulse Resp B/P (MAP) Pulse Ox O2 Delivery O2 Flow Rate FiO2 09/12/16 12:25 Nasal Cannula 5.0 09/12/16 12:22 96 09/12/16 07:16 32 09/12/16 06:00 115 130/80 (97) 09/12/16 04:00 97.8 97.8 Labs Labs Laboratory Tests Test 09/10/16 20:00 09/11/16 07:00 09/11/16 08:10 09/11/16 13:50 Heparin Anti-Xa Act, Unfractionated 0.31 IU/mL (0.30-0.70) 0.17 IU/mL (0.30-0.70) Sodium Level 133 mmol/L (136-145) Potassium Level 4.2 mmol/L (3.5-5.1) Chloride Level 98 mmol/L (98-107) Carbon Dioxide Level 27 mmol/L (21-32) Anion Gap 8 (6-14) Blood Urea Nitrogen 17 mg/dL (8-26) Creatinine 0.8 mg/dL (0.7-1.3) Estimated GFR (Cockcroft-Gault) 105.0 Glucose Level 101 mg/dL (70-99) Calcium Level 9.1 mg/dL (8.5-10.1) White Blood Count 14.6 x10^3/uL (4.0-11.0) Red Blood Count 3.95 x10^6/uL (4.30-5.70) Hemoglobin 12.1 g/dL (13.0-17.5) Hematocrit 36.5 % (39.0-53.0) Mean Corpuscular Volume 93 fL (79-100) Mean Corpuscular Hemoglobin 31 pg (25-35) Mean Corpuscular Hemoglobin Concent 33 g/dL (31-37) Red Cell Distribution Width 14.1 % (11.5-14.5) Platelet Count 282 x10^3/uL (140-400) Test 09/11/16 20:45 09/12/16 02:30 Heparin Anti-Xa Act, Unfractionated 0.32 IU/mL (0.30-0.70) 0.26 IU/mL (0.30-0.70) Laboratory Tests Test 09/11/16 20:45 09/12/16 02:30 Heparin Anti-Xa Act, Unfractionated 0.32 IU/mL (0.30-0.70) 0.26 IU/mL (0.30-0.70) Images Images Moderate size bilateral pleural effusions are seen. No pneumothorax is seen. No pneumomediastinum is evident. No subcutaneous air is evident. Proximal bronchial tree is patent. Bilateral peribronchial thickening is seen consistent with bronchitis. Perihilar ground-glass lung infiltrates are seen which could represent pulmonary edema. However, denser consolidation is seen within the medial aspect of the right lower lobe and this displaces the bronchus anteriorly. Therefore, this may represent a lung mass rather than a pneumonia. This measures 8.6 centimeters in greatest dimension. No bulky thoracic lymphadenopathy is seen. There is some residual thymic tissue within the anterior mediastinum. Heart size is normal. However a small to moderate pericardial effusion is present. No focal aneurysmal dilatation of the thoracic aorta is seen. Radiolucent lesions of the thoracic and lumbar spine are seen consistent with metastatic disease. No adrenal mass is seen. Assessment/Plan Assessment/Plan 46-year-old male presents with increasing shortness of breath, productive cough , fatigue. Imaging has demonstrated a large right lower lobe hilar mass. There is also an associated pericardial effusion. The concern is that this is a malignant effusion. Transthoracic echo demonstrated some RV collapse, consistent with early tamponade. Plan for left VATS pericardial window today. Will send pericardium for pathology and pericardial fluid for cytology. Risks, benefits and limitations of the procedure were explained to the patient who agrees to proceed. Informed consent has been obtained. I explained to the patient that if he did not tolerate single lung ventilation that we would proceed with a subxiphoid pericardial window, instead of a VATS. JOSE RESENDIZ MD September 12, 2016 14:13
[2016-09-12] MEDS ORDERED: DEXAMETHASONE SOD PHOS 20 MG/5 ML VIAL. ONE (14:31)
[2016-09-12] MEDS ORDERED: ePHEDrine PF IN SALINE 50 MG/5 ML DISP.SYRIN IV ONE (14:42)
[2016-09-12] MEDS ORDERED: GLYCOPYRROLATE 1 MG/5 ML VIAL. ONE (14:44)
[2016-09-12] MEDS ORDERED: 0.9 % SODIUM CHLORIDE 50 ML VIAL. IJ ONE (14:52)
[2016-09-12] MEDS ORDERED: VASOPRESSIN 20 UNIT/ML VIAL. ONE ×2 (14:52→15:10)
[2016-09-12 16:01] LABS: HCO3 ABG 22 mmol/L (21-28)
[2016-09-12 16:19] LABS: PH ABG 6.95 (7.35-7.45)
[2016-09-12 16:20] LABS: PCO2 ABG 102 mmHg (35-46)
[2016-09-12 16:22] LABS: PO2 ABG < 42 mmHg (75-108)
--- NOTE | 2016-09-12 17:05 | PDOC ---
BRIEF OPERATIVE NOTE Date: September 12, 2016 Pre-Op Diagnosis Locally advanced right lung mass Pericardial effusion Bilateral pleural effusions Pulmonary embolus Post-Op Diagnosis Locally advanced right lung mass Pericardial effusion Bilateral pleural effusions Pulmonary embolus Procedure Performed Subxiphoid pericardial window with drainage of pericardial fluid, with conversion to median sternotomy, internal cardiac massage, drainage of bilateral pleural effusion Surgeon Jose Resendiz MD Communications Strategist [employer] Anesthesiologist Tal Alcala MD Anesthesia Type: General Blood Loss 300 mls pericardial fluid 800 mls left pleural fluid 200-300 mls right pleural fluid Specimens Obtained Right lung biopsy Additional Remarks Cardiac arrest after induction of anesthesia 60 mins CPR JOSE RESENDIZ MD September 12, 2016 17:05
--- NOTE | 2016-09-12 17:24 | PDOC4 ---
Operative Note Operative Note Date September 12, 2016 Preoperative diagnosis Locally advanced right lung mass Pericardial effusion Bilateral pleural effusions Pulmonary embolus Postoperative diagnosis Locally advanced right lung mass Pericardial effusion Bilateral pleural effusions Pulmonary embolus Procedure Subxiphoid pericardial window with drainage of pericardial fluid, with conversion to median sternotomy, open cardiac massage, drainage of bilateral pleural effusion Surgeon Jose Resendiz MD Legal Assistant CASH Carvajal Anesthesiologist Tal Alcala MD Anesthesia Type General Blood Loss 300 mls pericardial fluid 800 mls left pleural fluid 200-300 mls right pleural fluid Specimens Obtained Right lung biopsy Additional Remarks Cardiac arrest after induction of anesthesia 60 mins CPR without recovery-mortality Indication The patient is a 46-year-old male who presented with increased shortness of breath and coughing over the last 3-4 weeks. He was found to have a large right lung hilar mass with associated pericardial effusion, bilateral pleural effusions and possible bony metastatic deposits. The transthoracic echo showed a moderate to large pericardial effusion with possible compression of the RV consistent with possible early tamponade. At the same time the patient was found to have lower extremity DVT and a small PE. There was concern from the critical care team and traffic control technician about his pericardial effusion and I was consulted to consider the patient for a pericardial window. The risks, benefits and limitations of the procedure were explained to the patient who agreed to proceed. Informed consent was obtained. My plan was to do a left VATS pericardial window to create a more substantial opening in the pericardium, drain the left pleural effusion and also assess the left pleural space for any metastatic deposits that I could biopsy. I explained to the patient that he did not tolerate single lung ventilation that we would proceed with a subxiphoid pericardial window. Operation The patient was transferred from the ICU to the operating room. His ID was confirmed using 2 unique identifies. The patient had been receiving therapeutic antibiotics. Anesthesia was induced by the anesthesiologist and the airway was initially secured with a double lumen ET tube. The anesthesiologist were not happy with the position of the double-lumen tube and they found it very difficult to ventilate thus they inserted a regular ET tube. An arterial line was placed during induction of anesthesia. One to two minutes after anesthesia was induced, the patient rapidly became hypotensive and subsequently coded. CPR was immediately started and I quickly prepped and draped the patient's chest and upper abdomen. I made a lower midline sternal incision overlying the xiphoid process. Incision was deepened through subcutaneous tissues and through the middle of the rectus abdominous muscle. The xiphoid was divided with a Metzenbaum scissors and the anterior pericardium was identified and the opening was made. We drained 300 mL from the pericardial cavity. Concomitantly my clinic office assistant was performing CPR with rhythm checks every 2 minutes. Anesthesia was giving epinephrine, vasopressin and bicarbonate boluses according to the ACLS algorithm. After draining the pericardial fluid the patient remained in asystole. We continued CPR for 2-3 cycles without return of spontaneous circulation. At that point I decided to perform a full sternotomy to evaluate and treat a reversible cause of this patient's cardiac arrest. The sternotomy was performed in a standard fashion. There was no fluid in the pericardium at that point. There was no pneumothorax on the left or the right side. I open the right pleural space and drained 200-300 mL of fluid. I then opened the left pleural space and drained 800 mL's of straw-colored fluid. The patient had an extremely large mass originating from the right lower lobe and invading most of the hilar structures. Everything was very dense and scarred in the right hilum and mediastinum. We continued CPR with open cardiac massage for a full hour. The patient remained in asystole there was no return of spontaneous circulation. After the full hour we decided to stop CPR as it appeared that the etiology of his cardiac arrest was not reversible. Biopsies were taken from this right hilar lower lobe mass. The sternotomy was closed with 3 sternal wires , the subcutaneous layer with 0 Vicryl in the epidermis with 4-0 Monocryl. The family was informed of the outcome. I spoke to the patient's partner who was present. JOSE RESENDIZ MD September 12, 2016 17:24
[2016-09-12] MEDS ORDERED: SERTRALINE 25 MG TABLET. PO SCH (21:00)
[2016-09-13] MEDS ORDERED: KETOROLAC 30 MG/ML INJ FOR OR. INJ ONE (10:56)
--- NOTE | 2016-09-13 12:51 | PN ---
DATE: ADDENDUM I was called from the OR by Dr. Mcgill, that patient was coding in the operating room. The patient was taken to the OR for pericardial window. Upon induction of anesthesia, the patient became hypotensive and also hypoxic as well. The patient was resuscitated. Dr. Mcgill opened the pericardium and 300 mL of pericardial fluid was removed. The patient had intraoperative resuscitation for at least 60 minutes and the patient could not survive despite all aggressive efforts. Dr. Mcgill was able to feel a large tumor and he did take biopsy as well. The patient's girlfriend, Linn was notified by me, she was in the waiting room, had made multiple phone calls to the patient's grandmother, but was unable to reach her. The hospital staff will continue to reach out to other family members to notify the patient's . Later I was able to reach Grand mother. TAISHA SALVADOR MD DR: JOAO/markus JOB#: [id number] / [id number] ZENA
--- NOTE | 2016-09-15 00:15 | DS ---
DATE OF DISCHARGE: 09/12/2016 CHIEF COMPLAINT: Shortness of breath. HOSPITAL COURSE: The patient is a 46-year-old gentleman who presented to the hospital with worsening shortness of breath. Chest x-ray actually revealed a mass as well as pericarditis. Both were suspected to be malignant. He also was found to have DVT in the left lower extremity by ultrasound. He underwent pericardial window placement on 09/12/2016, which unfortunately resulted in cardiac arrest without return to heart function despite intraoperative CPR. Suspicion for PE was given. DISCHARGE DATE: 09/12/2016 DISCHARGE DISPOSITION: . TIME OF EXPIRATION: 09/12/2016 at 1542. MAY CHAVARRIA MD DR: RIZWAN/markus JOB#: [id number] / [id number] ZENA
--- NOTE | 2016-09-15 13:26 | PATHOLOGY ---
PATHOLOGY REPORT * * * * * * * * FINAL DIAGNOSIS: A. Lung tissue, right lower lobe biopsy: - ADENOCARCINOMA, MODERATELY TO POORLY DIFFERENTIATED, WITH MUCINOUS FEATURES AND WITH LYMPHOVASCULAR TUMOR INVASION. B. Lung tissue, right lower lobe biopsy: - ADENOCARCINOMA, MODERATELY TO POORLY DIFFERENTIATED, WITH MUCINOUS FEATURES AND WITH LYMPHOVASCULAR TUMOR INVASION. COMMENT: Sections of the right lower lobe biopsies appear similar and reveal a malignant epithelial neoplasm. A large portion of the neoplasm consists of irregular malignant glands, some of which have a gland within gland configuration, floating within mucin. There are also focal malignant glands which infiltrate a reactive desmoplastic stroma. The tumor cells have moderate amounts of pale eosinophilic cytoplasm and frequently contain mucin vacuoles. The malignant cells possess enlarged, moderately pleomorphic, rounded to ovoid nuclei containing prominent nucleoli. There are mitotic figures present and there is focal tumor necrosis. There are also foci of lymphovascular tumor invasion. The morphologic findings are supportive of the diagnosis of a primary pulmonary adenocarcinoma with mucinous features. The case is also examined by Dr. Sarah Mccann, who concurs with the diagnosis. (JPM:mgnatasha; d/t: 09/15/16) REPORT ELECTRONICALLY SIGNED BY: Roni Ibarra M.D. DATE/TIME: 09/15/2016 13:24 * * * * * * * * GROSS PATHOLOGY: A. The specimen is received in formalin, labeled "Mo Hudson, right lower lobe tissue," and consists of multiple white to resendez soft tissue and mucoid material measuring 1.2 x 1.0 x 0.3 cm in aggregate dimension. The tissue is entirely submitted in cassette A1. B. The specimen is received in formalin, labeled "Mo Hudson, right lower lobe tissue," and consists of multiple white to resendez soft tissue and mucoid material measuring 2.2 x 0.4 x 0.2 cm in aggregate dimensions. The tissue is entirely submitted in cassette B1. (MIGUE; 09/14/2016) INITIAL CPT CODE(S): A; 03087 B; 75604 Professional services performed by [employer] at [facility] [address] [place] [address] Technical services performed by [employer] at [address] [place] [address], [address], [place] [address]. SPECIMEN(S) RECEIVED: A.Right lower lobe tissue B.Right lower lobe tissue CLINICAL HISTORY: Pericardial effusion, right lung mass, possible bony mets PATIENT: MO HUDSON /AGE: 1103/05/1970 (Age: 46) PATIENT #: [id number] ALT CASE #: SPECIMEN COLLECTION DATE: 09/12/2016 SPECIMEN RECEIVED DATE: 09/13/2016 [facility] - [id number] [place] [address] - PHONE: [phone] * * * END OF REPORT * * *
== END 2016-09-13 01:05 | disposition expired | DRG 163 ==
LOC: 1 WEST ICU 01:59
PROVIDERS: ADMIT Internal Medicine; ATTEND Internal Medicine
PROC: 0W9D0ZZ Drainage of Pericardial Cavity, Open Approach (ICD-10-PCS; 2016-09-12)
PROC: 0BBF0ZX Excision of Right Lower Lung Lobe, Open Approach, Diagnostic (ICD-10-PCS; 2016-09-12)
PROC: 0W9B0ZZ Drainage of Left Pleural Cavity, Open Approach (ICD-10-PCS; 2016-09-12)
PROC: 0W990ZZ Drainage of Right Pleural Cavity, Open Approach (ICD-10-PCS; 2016-09-12)
PROC: 5A12012 Performance of Cardiac Output, Single, Manual (ICD-10-PCS; principal; 2016-09-12 14:00)
DX: C34.90 Malignant neoplasm of unspecified part of unspecified bronchus or lung (principal); I26.99 Other pulmonary embolism without acute cor pulmonale; I46.9 Cardiac arrest, cause unspecified; J96.01 Acute respiratory failure with hypoxia; I31.3 Pericardial effusion (noninflammatory); I82.409 Acute embolism and thrombosis of unspecified deep veins of unspecified lower extremity; J90 Pleural effusion, not elsewhere classified; D64.9 Anemia, unspecified; F12.90 Cannabis use, unspecified, uncomplicated; F17.210 Nicotine dependence, cigarettes, uncomplicated; I51.7 Cardiomegaly; K21.9 Gastro-esophageal reflux disease without esophagitis; Z80.3 Family history of malignant neoplasm of breast
CPT/HCPCS: 36415; 36600; 71250; 80048; 82805; 85027; 85520; 87641; 88305; 90732; 93306; 93970; 94250; 94640; C1781; J0696; J1100; J1885; J2270; J2405; J3010; J3490; J7030; J7620; S0028